=== PATIENT | male | born 1945 | race Caucasian/White ===

== ENCOUNTER 2022-05-14 09:30 | Emergency (ER) | payer MEDICARE, OTHER ==
[2022-05-14 10:36] LABS: ANION GAP 13.2 mEq/L (7-13); CHLORIDE,CL 106 mmol/L (98-107); SODIUM,NA 142 mmol/L (136-145)
[2022-05-14 10:37] LABS: ESTIMATED GFR 68 mL/min (>=60)
== END 2022-05-14 15:32 | disposition home or self-care (01) ==
LOC: DL.ED 09:30
DX: R55 Syncope and collapse (principal); K52.9 Noninfective gastroenteritis and colitis, unspecified; I10 Essential (primary) hypertension
CPT/HCPCS: 36415; 70450; 80053; 83605; 84484; 85025; 87804; 93005; 93010; 99284; 99285